=== PATIENT | female | born 1965 | race Caucasian/White ===

== ENCOUNTER 2020-12-30 16:00 | Emergency (ER) | payer MEDICARE, MEDICAID ==
[~2020-12-30] VITALS: Ht 175.3 cm; Wt 113.0 kg
[2020-12-30 16:35] VITALS: BP 137/88
== END 2020-12-30 16:35 | disposition home or self-care (01) ==
LOC: ED 16:00
DX: S61.432A Puncture wound without foreign body of left hand, initial encounter (principal); F17.200 Nicotine dependence, unspecified, uncomplicated; W26.8XXA Contact with other sharp object(s), not elsewhere classified, initial encounter

== ENCOUNTER 2021-03-29 08:52 | Day surgery (SDC) | payer MEDICARE, MEDICAID ==
[~2021-03-29] VITALS: Ht 162.6 cm; Wt 86.6 kg
[~2021-03-29 08:52] MED LIST: ATIVAN0.5 MG PO; EPIVIR300 MG PO; ESTRACE2 M1 PO; ESTRADIOL; FEXOFENADINE; FEXOFENADINE PO; JULUCA PO; LISINOPRIL; LISINOPRIL2.5 MG PO; PRAVASTATIN; PRAVASTATIN20 MG PO; VALACYCLOVIR500 MG PO; [UNRECOGNIZED DRUG - REMARK]; [UNRECOGNIZED DRUG - REMARK]
[2021-03-29 12:23] VITALS: BP 157/87
== END 2021-03-29 12:35 | disposition home or self-care (01) ==
LOC: ENDO 08:52
PROVIDERS: ATTEND Surgery
PROC: 0DJD8ZZ Inspection of Lower Intestinal Tract, Via Natural or Artificial Opening Endoscopic (ICD-10-PCS; principal; 2021-03-29)
DX: Z12.11 Encounter for screening for malignant neoplasm of colon (principal); K64.4 Residual hemorrhoidal skin tags; I10 Essential (primary) hypertension; Z80.49 Family history of malignant neoplasm of other genital organs